=== PATIENT | female | born 1955 | race Caucasian/White ===

== ENCOUNTER 2021-06-03 14:26 | Emergency (ER) | payer BC ==
[~2021-06-03] VITALS: Ht 172.7 cm; Wt 119.3 kg
[2021-06-03 15:51] VITALS: BP 177/81
[2021-06-03 17:07] LABS: D-DIMER 2.99 MG/L FEU (0-0.50)
== END 2021-06-03 19:20 | disposition home or self-care (01) ==
LOC: ER 14:27
DX: S80.11XA Contusion of right lower leg, initial encounter (principal); R60.9 Edema, unspecified; W19.XXXA Unspecified fall, initial encounter; Y93.89 Activity, other specified; Y92.89 Other specified places as the place of occurrence of the external cause; Y99.8 Other external cause status
CPT/HCPCS: 36415; 85379; 93971; 99284